=== PATIENT | female | born 1970 | race Caucasian/White ===

== ENCOUNTER 2023-05-04 10:07 | Inpatient (IN) | payer OTHER ==
[2023-05-04] VITALS (8 sets, daily range): BP systolic 120; BP diastolic 93; PULSE 80–91; RESP 17–20; TEMP 97.8; O2SAT 96–100
[~2023-05-04] VITALS: Ht 160 cm; Wt 63.5 kg
[2023-05-04 10:47] LABS: BASOPHILS % (AUTO) 0.2 % (0.0-2.0); EOSINOPHILS % (AUTO) 0.7 % (0.0-4.0); HEMATOCRIT 45.3 % (36-48); LYMPHOCYTES % (AUTO) 14.6 % (20.5-51.1); MEAN CORPUSCULAR HEMOGLOBIN 37 pg (27-31); MEAN CORPUSCULAR HGB CONC 35 g/dL (33-37); MEAN CORPUSCULAR VOLUME 104.4 fL (80-94); MONOCYTES # (AUTO) 0.4 K/uL (0.8-1.0); MONOCYTES % (AUTO) 5.4 % (1.7-9.3); NEUTROPHILS # (AUTO) 5.3 K/uL (1.8-7.7); NEUTROPHILS % (AUTO) 79.1 % (42.2-75.2); PLATELET COUNT (AUTO) 133 K/uL (140-450); RED BLOOD CELL COUNT(AUTO) 4.34 MIL/uL (4.20-5.40); RED CELL DISTRIBUTION WIDTH 13.8 % (11.6-13.7); WHITE BLOOD COUNT (AUTO) 6.7 K/uL (4.8-10.8)
[2023-05-04 11:16] LABS: INR 1.17 (0.8-1.2); PROTHROMBIN TIME 12.2 secs (10.8-13.4)
[2023-05-04 11:24] LABS: ANION GAP 20.5 (8-16); CALCIUM 9.6 mg/dL (8.5-10.1); CARBON DIOXIDE 22.3 mmol/L (21-32); CREATININE 0.6 mg/dL (0.6-1.3); POTASSIUM 3.8 mmol/L (3.5-5.1)
[2023-05-04 11:25] LABS: ALANINE AMINOTRANSFERASE 81 U/L (12-78); ALKALINE PHOSPHATASE 62 U/L (50-136); ASPARTATE AMINOTRANSFERASE 59 U/L (15-37); BILIRUBIN,DIRECT 0.3 mg/dL (0.0-0.3); TOTAL PROTEIN, SERUM 8.5 g/dL (6.4-8.2)
[2023-05-04] MEDS: ONDANSETRON 4 MG/2 ML VIAL IVP ONE (14:22)
[2023-05-04] MEDS: MORPHINE SULFATE 4 MG/ML SYR IVP ONE (14:25)
[2023-05-04] MEDS ORDERED: ONDANSETRON 4 MG/2 ML VIAL IVP PRN (15:30)
[2023-05-04] MEDS: NICOTINE TRANSD SYS 14 MG/24 HR PATCH TD SCH (15:58)
[2023-05-04] MEDS: NACL 0.9% 1,000 ML IV SCH (16:11)
[2023-05-04] MEDS: HYDROcodone/APAP 5/325 MG 1 TAB TAB PO PRN (16:47)
[2023-05-04] MEDS: LORazepam 2 MG/ML VIAL IVP PRN (19:13)
[2023-05-04] MEDS: ALBUTEROL 0.083% 2.5 MG/3 ML NEBU INH PRN (23:16)
[2023-05-05] VITALS (13 sets, daily range): BP systolic 113–134; BP diastolic 75–95; PULSE 76–103; RESP 17–20; TEMP 96.9–98.4; O2SAT 96–100
[2023-05-05] MEDS ORDERED: MELATONIN 3 MG TAB PO PRN (07:15)
[2023-05-05 07:16] LABS: BASOPHILS % (AUTO) 0.5 % (0.0-2.0); EOSINOPHILS # (AUTO) 0.1 K/uL (0-0.4); EOSINOPHILS % (AUTO) 2.7 % (0.0-4.0); HEMATOCRIT 38.6 % (36-48); HEMOGLOBIN 13.5 g/dL (12.0-16.0); LYMPHOCYTES # (AUTO) 1.1 K/uL (2.5-16.5); MEAN CORPUSCULAR HEMOGLOBIN 37 pg (27-31); MEAN CORPUSCULAR HGB CONC 35 g/dL (33-37); MEAN CORPUSCULAR VOLUME 105.9 fL (80-94); MONOCYTES # (AUTO) 0.2 K/uL (0.8-1.0); MONOCYTES % (AUTO) 7.2 % (1.7-9.3); NEUTROPHILS # (AUTO) 1.8 K/uL (1.8-7.7); NEUTROPHILS % (AUTO) 55.6 % (42.2-75.2); PLATELET COUNT (AUTO) 114 K/uL (140-450); RED BLOOD CELL COUNT(AUTO) 3.65 MIL/uL (4.20-5.40); RED CELL DISTRIBUTION WIDTH 13.9 % (11.6-13.7); WHITE BLOOD COUNT (AUTO) 3.2 K/uL (4.8-10.8)
[2023-05-05 07:45] LABS: ANION GAP 11.7 (8-16); CALCIUM 8.5 mg/dL (8.5-10.1); CARBON DIOXIDE 28.3 mmol/L (21-32); CREATININE 0.5 mg/dL (0.6-1.3)
[2023-05-05] MEDS: ASPIRIN 81 MG TAB.CHEW PO SCH (08:56)
[2023-05-05] MEDS ORDERED: ASPIRIN 325 MG TABEC PO SCH (09:00)
[2023-05-05] MEDS ORDERED: NICOTINE TRANSD SYS 14 MG/24 HR PATCH TD SCH (09:00)
[2023-05-05] MEDS: ACETAMINOPHEN 325 MG TAB PO PRN (10:49)
[2023-05-05 13:11] LABS: FLU A ANTIGEN negative (NEGATIVE); FLU B ANTIGEN NEGATIVE (NEGATIVE)
[2023-05-05] MEDS ORDERED: ZOLPIDEM 5 MG TAB PO PRN (13:15)
[2023-05-05] MEDS: KETOROLAC 15 MG/ML VIAL IVP SCH (13:27)
== END 2023-05-05 14:48 | disposition home or self-care (01) | DRG 313 ==
LOC: MED 10:07 → MTU 15:27
PROVIDERS: ADMIT Student in an Organized Health Care Education/Training Program; ATTEND Student in an Organized Health Care Education/Training Program
DX: R07.89 Other chest pain (principal); F41.9 Anxiety disorder, unspecified; F31.9 Bipolar disorder, unspecified; Z20.822 Contact with and (suspected) exposure to COVID-19; R74.01 Elevation of levels of liver transaminase levels; F17.200 Nicotine dependence, unspecified, uncomplicated
CPT/HCPCS: 36415; 71045; 80048; 80076; 83880; 84484; 85025; 85379; 85610; 85730; 87081; 93005; 94640; 96374; 96375; 99285; J1885; J2060; J2270; J2405; J7613